=== PATIENT | male | born 1980 | race Caucasian/White ===

== ENCOUNTER 2018-03-19 13:00 | Emergency (ER) | payer SELFPAY ==
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
[2018-03-19] MEDS ORDERED: HYDROCODONE/APAP 7.5/325 MG TAB ONE (13:40)
== END 2018-03-19 14:23 | disposition home or self-care (01) ==
LOC: ER 13:00
DX: M54.5 Low back pain (principal); V59.49XA Driver of pick-up truck or van injured in collision with other motor vehicles in traffic accident, initial encounter; Z88.8 Allergy status to other drugs, medicaments and biological substances
CPT/HCPCS: 99284